=== PATIENT | female | born 1945 | race Caucasian/White ===

== ENCOUNTER → 2021-10-27 11:42 | Outpatient (CLI) | payer MEDICARE, SELFPAY ==
--- NOTE | ~2021-10-27 | MR_ITS ---
EXAMINATION: MR lumbar spine wo con DATE: 10/27/2021 12:28 INDICATION: Low back pain, sciatica . TECHNIQUE: Magnetic resonance imaging (MRI) of the lumbar spine was performed without intravenous con trast. Sequences included sagittal T2-weighted FSE, sagittal T2-weighted FS FSE, sagittal T1-weighted FSE, and axial T2-weighted FSE. COMPARISON: 01/12/2013. FINDINGS: The last fully formed and hydrated disc is designated L5-S1. Paraspinal muscle fatty infilt ration. Osseous overgrowth, cortical thickening, and increase interval fatty replacement in the L3 ve rtebral body. Reactive inferior endplate change at L5. Otherwise the marrow signal is benign and homo genous. Conus terminates at T12-L1. Multilevel disc dehydration. Redundancy of epidural fat. 7 mm ant erolisthesis of L5 on S1 The following disc levels are specifically discussed: T11-T12: Mild diffuse bulge. There is no facet joint osteoarthritis. There is no neural foraminal vicenta nosis. There is no central canal stenosis. T12-L1: Mild diffuse bulge. There is no facet joint osteoarthritis. There is no neural foraminal sten osis. There is no central canal stenosis. L1-L2: The disc does not extend beyond the endplate margin. There is mild facet joint osteoarthritis. There is no neural foraminal stenosis. There is no central canal stenosis. L2-L3: Moderate diffuse bulge. There is moderate facet joint osteoarthritis. There is mild left neura l foraminal stenosis. There is no central canal stenosis. L3-L4: Severe diffuse bulge. There is moderate facet joint osteoarthritis. There is moderate right an d mild left neural foraminal stenosis. There is no central canal stenosis. L4-L5: Severe diffuse bulge. There is moderate facet joint osteoarthritis. There is moderate bilatera l neural foraminal stenosis. There is mild central canal stenosis. L5-S1: Mild diffuse bulge. There is severe facet joint osteoarthritis. There is moderate right and se antonette left neural foraminal stenosis. There is severe central canal stenosis. IMPRESSION: 1. Grade 1 degenerative anterolisthesis of L5 on S1 with severe facet arthropathy contribute to moder ate right and severe left neural foraminal narrowing as well as severe central canal stenosis. 2. Additional multilevel degenerative disc and facet changes and mild-moderate neural foraminal narro wing described above. 3. 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 4. Paraspinal muscle atrophy. Reviewed, dictated and finalized at location K. IMPRESSION: 1. Grade 1 degenerative anterolisthesis of L5 on S1 with severe facet arthropat hy contribute to moderate right and severe left neural foraminal narrowing as w ell as severe central canal stenosis. 2. Additional multilevel degenerative disc and facet changes and mild-moderate neural foraminal narrowing described above. 3. 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 4. Paraspinal muscle atrophy.
== END ==
PROVIDERS: PCP Internal Medicine; Visit Provider Internal Medicine
DX: M47.817 Spondylosis without myelopathy or radiculopathy, lumbosacral region (principal); M48.07 Spinal stenosis, lumbosacral region; M54.30 Sciatica, unspecified side
CPT/HCPCS: 72148

== ENCOUNTER 2022-05-24 14:58 | Emergency (ER) | payer MEDICARE, SELFPAY ==
[2022-05-24 15:29] VITALS: PULSE 94; RESP 18; TEMP 37.2; O2SAT 99
[2022-05-24 15:51] VITALS: PULSE 105; RESP 20; O2SAT 96
--- NOTE | 2022-05-24 16:01 | ED.URI ---
HPI - URI/Sore Throat General Chief Complaint: Upper Respiratory Infection Stated Complaint: Swollen glands, sinus infection Wednesday Time Seen by Provider: 05/24/22 15:48 History of Present Illness HPI Narrative: This is a 76-year-old female with past medical history of hypertension, hyperlipidemia, hypothyroidism, presents emergency department complaining of upper respiratory congestion and swollen lymph nodes. She states her symptoms began approximately 1 week ago with sinus pressure, rated 5/10, without radiation or focal weakness/numbness, change in vision or loss of hearing. She notes the swelling began under the right jaw, appeared in the left jaw and over the left cheek. She notes previous nonproductive cough with associated chest and abdominal soreness and one episode of posttussive emesis. She states her abdominal and chest pain have resolved and not recurred. She has no other complaints today. Related Data Home Medications Medication Instructions Recorded Confirmed aspirin 81 mg tablet,delayed 81 mg PO DAILY 01/16/22 release (Adult Low Dose Aspirin) dicyclomine 10 mg capsule 10 mg PO ONCE PRN 01/16/22 multivitamin (Multiple Vitamins 1 tablet PO DAILY 01/16/22 tablet) omeprazole 20 mg tablet,delayed 20 mg PO DAILY 01/16/22 release Allergies Allergy/AdvReac Type Severity Reaction Status Date / Time latex Allergy Unknown Unknown Verified 01/16/22 08:13 Sulfa (Sulfonamide Allergy Unknown Verified 01/16/22 08:13 Antibiotics) Review of Systems Review of Systems: CONSTITUTIONAL: Subjective fevers and chills denies sweats. EYES: Denies visual changes, redness, or discharge. ENT: Rhinorrhea, congestion, sore throat denies otalgia. CARDIOVASCULAR: Denies chest pain, palpitations, or edema. RESPIRATORY: Nonproductive cough denies or dyspnea. GASTROINTESTINAL: Denies abdominal pain, nausea, vomiting, or diarrhea. GENITOURINARY: Denies dysuria or hematuria. SKIN: Denies rash or itching. MUSCULOSKELETAL: Myalgias denies back pain, joint pain, NEUROLOGIC: Headache denies numbness, dizziness, or weakness. PSYCHIATRIC: Denies anxiety or depression. [facility] Past Medical History Medical History (Updated 05/24/22 @ 17:17 by Lj Del Cid MD) Hyperlipidemia Hypertension Hypothyroidism Social History Social History (Updated 05/24/22 @ 16:04 by Lj Del Cid MD) Smoking status: Never smoker Alcohol intake: never Substance use: never Gender identity (if verbalized by the patient): Female Sexual Orientation (if Verbalized by the Patient): Straight or Heterosexual Exam Narrative: GENERAL: Well-developed, well-nourished, and in no acute distress. HEAD: Normocephalic, atraumatic. EYES: PERRLA and EOMI. ENT: Nares clear, no rhinorrhea or epistaxis. Mucous membranes moist. Oropharynx with mild bilateral tonsillar erythema but no hypertrophy, exudate or other lesions. Bilateral TMs pearly hernandez nonbulging NECK: Supple. Bilateral anterior cervical lymphadenopathy without tenderness; no masses. No carotid bruits or JVD CHEST: Clear to auscultation. No respiratory distress. No wheezes rales or rhonchi HEART: Regular rate and rhythm. No murmur heard. Normal peripheral pulses. ABDOMEN: Soft, nontender, nondistended, normal active bowel sounds. EXTREMITIES: Normal range of motion. No edema. SKIN: Warm, dry, no rash. NEURO: No focal deficits. Alert and oriented x3. PSYCH: Normal mood and affect. Course Course Emergency Course: 17:00 - Patient tested positive for influenza A. She is outside of the window for treatment with Tamiflu. She was not tachycardic during examination. Her exam is not concerning for airway compromise. Will discharge with symptomatic treatment. Discussed return emergency precautions including signs/symptoms of respiratory distress and sepsis. Patient voiced understanding and is comfortable with the plan. All questions answered to her satisfaction. Vital Signs Vital
[2022-05-24] MEDS: ACETAMINOPHEN 500 MG TABLET 1000 MG PO (16:12)
[2022-05-24 16:54] LABS: Influenza A QL RT-PCR Positive (Negative); Influenza B QL RT-PCR Negative (Negative); RSV RNA, RT-PCR Negative (Negative); SARS-CoV-2 RNA PCR Negative
[2022-05-24 17:22] VITALS: PULSE 99; RESP 20; O2SAT 97
== END 2022-05-24 17:23 | disposition home or self-care (01) ==
PROVIDERS: Nurse Practitioner Family; Emergency Provider Preventive Medicine Aerospace Medicine; PCP Physician Assistant Medical
DX: J10.1 Influenza due to other identified influenza virus with other respiratory manifestations (principal); R59.1 Generalized enlarged lymph nodes; Z20.822 Contact with and (suspected) exposure to COVID-19; E78.5 Hyperlipidemia, unspecified; I10 Essential (primary) hypertension; E03.9 Hypothyroidism, unspecified; Z79.82 Long term (current) use of aspirin
CPT/HCPCS: 87637; 99283; A9270

== ENCOUNTER 2022-11-03 16:02 | Emergency (ER) | payer MEDICARE, SELFPAY ==
--- NOTE | 2022-11-03 16:12 | ED.FALL ---
HPI - Fall General Chief Complaint: Skin/Abscess/Foreign Body Stated Complaint: Fall Injury/Left Arm Time Seen by Provider: 11/03/22 16:04 Source: patient Mode of arrival: ambulatory Limitations: no limitations History of Present Illness HPI Narrative: Lara is a 76-year-old female patient presenting to the clinic today with complaints of left arm injury-skin tear after a fall last night around 7:00 p.m.. She reports she tripped on a rug and skidded her left arm on the wall and this caused a skin tear. Has skin tear to the proximal left forearm/elbow. Tetanus is not up-to-date Related Data Home Medications Medication Instructions Recorded Confirmed aspirin 81 mg tablet,delayed 81 mg PO DAILY 01/16/22 11/03/22 release (Adult Low Dose Aspirin) dicyclomine 10 mg capsule 10 mg PO ONCE PRN Cramps 01/16/22 11/03/22 multivitamin (Multiple Vitamins 1 tablet PO DAILY 01/16/22 11/03/22 tablet) omeprazole 20 mg tablet,delayed 20 mg PO DAILY 01/16/22 11/03/22 release Allergies Allergy/AdvReac Type Severity Reaction Status Date / Time latex Allergy Unknown Unknown Verified 11/03/22 16:07 Sulfa (Sulfonamide Allergy Unknown Verified 11/03/22 16:07 Antibiotics) Review of Systems Review of Systems: Pertinent positives per HPI. Patient denies any fever, chills, rash, headache, visual changes, dizziness, cough, runny nose, sore throat, shortness of breath, chest pain, palpitations, nausea, vomiting, diarrhea, constipation, abdominal pain, or any urinary issues. [facility] Past Medical History Medical History Anxiety Hyperlipidemia Hypertension Hypothyroidism Social History Social History Smoking status: Never smoker Second hand tobacco smoke exposure: No Alcohol intake: never Substance use: never Substance use type: does not use Lack of Transportation: No Lack of Food: Never True Current Housing: I Have Housing Concerned About Future Housing: No Difficulty Paying Gas/Electric Bills: No Difficulty Paying for Meds: No Currently Unemployed: No Education: High School Diploma/GED Difficulty w/ Childcare or Family Care: No Living arrangements: with family Occupation/Education: occupation Gender identity (if verbalized by the patient): Female Sexual Orientation (if Verbalized by the Patient): Straight or Heterosexual Comments At the time of my signature, I reviewed and agree with the nursing past medical, surgical, social, and family history. There is no relevant family history pertinent to the patient complaint. Exam Narrative: General: Well-developed, obese in no apparent distress Head: Normocephalic, atraumatic. Cardio: Regular rate and rhythm, s1 and s2 normal, no murmur appreciated. Resp: Clear to auscultation bilaterally, no rhonchi, rales, wheezing or rubs. Integumentary: [place], warm, and dry, 5x3.5cm skin tear to the left proximal forearm/elbow Course Course Emergency Course: Portions of this record may have been created with voice recognition software. Level of Care: Express Care Visit Vital Signs Vital signs: Vital signs reviewed Procedures Laceration Laceration 1: Date: 11/03/22 Time: 16:41 Site: upper extremity Side (If applicable): left Size (cm): 5 Description: other (Skin tear) Depth: simple, single layer Local Anesthetic: none Pre-repair: wound explored and irrigated ====== Skin Level ====== Skin layer closed with: steri strips ====== Subcutaneous Layer ====== ====== Muscle Layer ====== ====== Tendon Layer ====== Dressing: Verbal consent obtained for laceration repair. Risk and benefits explained and patient voiced understanding. Area was cleansed with [place] wash and benzoin and Steri-Strips were used to close wound patient
[2022-11-03 16:16] VITALS: PULSE 102; RESP 18; TEMP 36.4; O2SAT 98
[2022-11-03] MEDS: TETANUS,DIPHTHERIA,AC PERTUSSIS ADULT (0.5 ML) BOOSTRIX IM (16:30)
[2022-11-03 16:31] VITALS: BP 152/81
== END 2022-11-03 16:39 | disposition home or self-care (01) ==
PROVIDERS: Emergency Provider Nurse Practitioner Family; PCP Physician Assistant Medical
DX: S51.012A Laceration without foreign body of left elbow, initial encounter (principal); W18.09XA Striking against other object with subsequent fall, initial encounter; Z23 Encounter for immunization; F41.9 Anxiety disorder, unspecified; E78.5 Hyperlipidemia, unspecified; I10 Essential (primary) hypertension; E03.9 Hypothyroidism, unspecified; Z79.82 Long term (current) use of aspirin
CPT/HCPCS: 90471; 90715; 99212; G0463

== ENCOUNTER 2023-08-27 15:55 | Emergency (ER) | payer MEDICARE, SELFPAY ==
[2023-08-27 16:10] VITALS: BP 160/82; PULSE 91; RESP 18; TEMP 36.3; O2SAT 97
--- NOTE | 2023-08-27 16:28 | ED.BACK ---
HPI - Back Pain/Injury General Chief Complaint: Back Pain/Injury Stated Complaint: Sciatic nerve pain Time Seen by Provider: 08/27/23 16:31 Source: patient and RN notes reviewed Limitations: no limitations History of Present Illness HPI Narrative: 77-year-old female presents with concern of for one-week history of left sciatic pain radiating down left leg. Reports history of sciatic pain that she symptoms cortisone injections and muscle relaxers for, she was not able to get into her doctor for 1 week. She denies loss of bowel or bladder function, perianal anesthesia, weakness in any extremity. She reports tingling in the left leg. She denies fever, abdominal pain, dysuria, frequency, urgency. Denies any new injury. MD elicited complaint: back pain Related Data Home Medications Medication Instructions Recorded Confirmed aspirin 81 mg tablet,delayed 81 mg PO DAILY 01/16/22 08/27/23 release (Adult Low Dose Aspirin) multivitamin (Multiple Vitamins 1 tablet PO DAILY 01/16/22 08/27/23 tablet) omeprazole 20 mg tablet,delayed 20 mg PO DAILY 01/16/22 08/27/23 release Allergies Allergy/AdvReac Type Severity Reaction Status Date / Time latex Allergy Unknown Unknown Verified 08/27/23 16:18 Sulfa (Sulfonamide Allergy Unknown Verified 08/27/23 16:18 Antibiotics) Review of Systems Review of Systems: CONSTITUTIONAL: Denies malaise, chills, sweats, or fever. CARDIOVASCULAR: Denies chest pain, palpitations, or edema. RESPIRATORY: Denies cough or dyspnea. GASTROINTESTINAL: Denies abdominal pain, nausea, vomiting, diarrhea, loss of bowel function GENITOURINARY: Denies dysuria, hematuria, frequency, loss of bladder function. SKIN: Denies rash or itching. MUSCULOSKELETAL: Reports left low back pain radiating down left leg NEUROLOGIC: Denies numbness, weakness, or headache. All systems reviewed & are unremarkable except as noted in HPI and below PMFSH Past Medical History Medical History Anxiety GERD (gastroesophageal reflux disease) Hyperlipidemia Hypertension Hypothyroidism Social History Social History Smoking status: Never smoker Second hand tobacco smoke exposure: No Alcohol intake: never Substance use: never Substance use type: does not use Lack of Transportation: No Lack of Food: Never True Current Housing: I Have Housing Concerned About Future Housing: No Difficulty Paying Gas/Electric Bills: No Difficulty Paying for Meds: No Currently Unemployed: No Education: High School Diploma/GED Difficulty w/ Childcare or Family Care: No Living arrangements: with family Occupation/Education: occupation Gender identity (if verbalized by the patient): Female Sexual Orientation (if Verbalized by the Patient): Straight or Heterosexual Comments At time of signature, agree with nursing past medical, surgical, social and family history. There is no relevant family history pertinent to the presenting complaint Exam Narrative: GENERAL: Well-appearing, well-nourished, and in no acute distress. HEAD: Normocephalic, atraumatic. EYES: PERRLA and EOMI. NECK: Supple. No lymphadenopathy. CHEST: Clear to auscultation. No respiratory distress. HEART: Regular rate and rhythm. Distal pulses palpable and equal, cap refill <3 seconds ABDOMEN: Soft, nontender, nondistended, normal active bowel sounds, no palpable or pulsatile masses. No CVA tenderness MUSCULOSKELETAL: Normal range of motion and strength in all extremities; 5/5 strength with hip flexion and extension, dorsiflexion and extension, knee flexion and extension, plantar flexion and extension. Normal sensation in dermatomal distributions with sensitivity to light touch and pain. No midline back tenderness to palpation. No paraspinal tenderness. Transfers from lying to sitting to standing. SKIN: Warm, dry, no rash. No ecchymosis, eryt
== END 2023-08-27 16:50 | disposition home or self-care (01) ==
PROVIDERS: Emergency Provider Nurse Practitioner; PCP Physician Assistant Medical
DX: M54.42 Lumbago with sciatica, left side (principal); K21.9 Gastro-esophageal reflux disease without esophagitis; E78.5 Hyperlipidemia, unspecified; I10 Essential (primary) hypertension; E03.9 Hypothyroidism, unspecified; F41.9 Anxiety disorder, unspecified; Z79.82 Long term (current) use of aspirin
CPT/HCPCS: 99213; G0463

== ENCOUNTER 2024-04-28 14:14 | Outpatient (CLI) | payer MEDICARE, SELFPAY ==
--- NOTE | ~2024-04-28 | MR_ITS ---
EXAMINATION: MR lumbar spine wo con DATE: 04/28/2024 15:03 INDICATION: Radiculopathy, lumbar region. Low back pain. TECHNIQUE: Magnetic resonance imaging (MRI) of the lumbar spine was performed without intravenous con trast. Sequences included sagittal T2-weighted FSE, sagittal T2-weighted FS FSE, sagittal T1-weighted FSE, and axial T2-weighted FSE. COMPARISON: Lumbar spine MRI 10/27/2021, radiographs 04/07/2024 FINDINGS: There is 3 degrees levocurvature of lumbar spine. There is 7 mm anterolisthesis of L5 on S1 . L3 demonstrates cortical and septal thickening and enlargement, consistent with Paget disease. Ther e is moderately decreased disc height at L3-L4, mildly decreased disc height at L4-L5, and severely d ecreased disc height at L5-S1. The distal spinal cord signal intensity is normal. The conus medullari s is at T12-L1. The following disc levels are specifically discussed: L1-L2: The disc does not extend beyond the endplate margin. There is mild bilateral facet joint osteo arthritis. There is no neural foraminal stenosis. There is no central canal stenosis. L2-L3: The disc is bulging and has an annular fissure. There is moderate bilateral facet joint osteoa rthritis. There is mild bilateral neural foraminal stenosis. There is mild central canal stenosis. L3-L4: The disc is bulging. There is moderate bilateral facet joint osteoarthritis. There is mild edwige ateral neural foraminal stenosis. There is mild central canal stenosis. L4-L5: The disc is bulging. There is severe bilateral facet joint osteoarthritis. There is moderate b ilateral neural foraminal stenosis. There is mild central canal stenosis. L5-S1: The disc is bulging and has an annular fissure. There is severe bilateral facet joint osteoart hritis. There is moderate right and severe left neural foraminal stenosis. There is mild central casie l stenosis. IMPRESSION: 1. Severe lumbar spondylosis. 2. Paget disease of L3. Reviewed, dictated and finalized at location A. [employer]
--- NOTE | ~2024-04-28 | MR_ITS ---
EXAMINATION: MR wrist LT wo con DATE: 04/28/2024 15:37 INDICATION: Left wrist pain TECHNIQUE: Magnetic resonance imaging (MRI) of the left wrist was performed without intravenous contr ast. Sequences performed include axial PD-weighted FSE and PD-weighted FS FSE, coronal PD-weighted FS FSE and T1-weighted SE, and sagittal PD-weighted FS FSE and PD-weighted FSE. COMPARISON: Left wrist radiographs dated 04/07/2024 FINDINGS: Intrinsic ligaments: The scapholunate and lunotriquetral ligaments are normal. Triangular fibrocartilage complex (TFCC): The triangular fibrocartilage including its foveal and styloid attachments as well as the dorsal and volar radioulnar ligaments are normal. The ulnar collateral ligament, ulnotriquetral ligament and men iscal homologue are normal. The extensor carpi ulnaris tendon sheath is normal. Extensor wrist: There is increased fluid signal in the first dorsal compartment consistent with mild tenosynovitis (d e Quervain's tenosynovitis). Moderate tendinopathy and longitudinal split tearing of the abductor raul licis longus and possibly also of the extensor pollicis brevis tendon which is difficult to clearly d istinguish from the neighboring abductor pollicis longus tendon. The remaining extensor tendons of th e wrist are normal. Flexor wrist: The flexor tendons of the wrist are normal. No abnormality in the carpal tunnel with normal median n erve. Guyon's canal: Guyon's canal including the ulnar nerve and artery are normal. Bones/other: Normal marrow signal. No fracture, erosions, avascular necrosis or abnormal marrow replacing process. Mild osteoarthritis at the distal radioulnar and first carpal metacarpal joints. IMPRESSION: 1. 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 Reviewed, dictated and finalized at location B. [employer]ICAL EQUIPMENT TESTER IMPRESSION: 1. de Quervain's tenosynovitis in the first dorsal compartment with moderate te ndinopathy and longitudinal split tearing of the abductor pollicis longus and/o r extensor pollicis brevis tendon.
== END 2024-04-28 14:15 | disposition home or self-care (01) ==
LOC: MICIMG 14:17
PROVIDERS: PCP Physician Assistant Medical; Visit Provider Physician Assistant Medical
DX: M25.532 Pain in left wrist (principal); M88.1 Osteitis deformans of vertebrae; M47.26 Other spondylosis with radiculopathy, lumbar region
CPT/HCPCS: 72148; 73221

== ENCOUNTER 2025-02-01 12:30 | Outpatient (CLI) | payer MEDICARE, SELFPAY ==
--- NOTE | ~2025-02-01 | MR_ITS ---
MRI of the left knee Clinical history: Pain Technique: Coronal proton density and proton density-weighted images, sagittal proton-density and T2 fat-sat images, and axial proton-density fat-saturated images were acquired. Findings: Anterior and posterior cruciate ligaments are intact. Medial collateral ligament and the lateral collateral ligament complex are intact. Popliteus tendon is intact. There is extensive intrasubstance degenerative signal of the posterior horn of the medial meniscus without definite tear. No lateral meniscal tear evident. There is diffuse severe chondromalacia patella with irregularity of the articular surface at the apex and lateral facet. There is severe chondromalacia diffusely involving the femoral trochlea, again with mild irregularity along the lateral femoral trochlea in particular. There is advanced chondromalacia at the medial and lateral joint lines focally, with moderate to large osteophyte at the medial lateral joint lines. Extensor mechanism is intact. Moderate joint effusion present. Small Escalante's cyst probably present. Impression: Severe degenerative change of the patellofemoral compartment, with probable chronic remodeling and irregularity of the articular surfaces. Correlate for any surgical history at the patellofemoral region. Moderate degenerative change at the medial lateral joint lines, as above. No definite ligamentous injury or meniscal tear seen. Moderate joint effusion with small Escalante's cyst. Reviewed, dictated and finalized at location M. Impression: Severe degenerative change of the patellofemoral compartment, with probable chr onic remodeling and irregularity of the articular surfaces. Correlate for any s urgical history at the patellofemoral region. Moderate degenerative change at the medial lateral joint lines, as above. No definite ligamentous injury or meniscal tear seen. Moderate joint effusion with small Escalante's cyst.
== END 2025-02-01 12:31 | disposition home or self-care (01) ==
PROVIDERS: PCP Physician Assistant Medical; Visit Provider Orthopaedic Surgery
DX: M71.22 Synovial cyst of popliteal space [Baker], left knee (principal); M17.12 Unilateral primary osteoarthritis, left knee
CPT/HCPCS: 73721

== ENCOUNTER 2025-03-10 18:52 | Emergency (ER) | payer MEDICARE, SELFPAY ==
--- NOTE | 2025-03-10 18:52 | ED_ITS ---
HPI - Extremity Injury (Upper) General Chief Complaint: Wound/Laceration Stated Complaint: R arm pain Time Seen by Provider: 03/10/25 18:52 Source: patient Mode of arrival: ambulatory Limitations: no limitations History of Present Illness HPI narrative: Lara is a 79 year old female patient presenting to the clinic today with c/o right arm skin tear. She reports some a broom handle fell and hit her in the arm causing a skin tear to her right forearm. Tetanus unk. This occured today. Related Data Home Medications ?Medication ?Instructions ?Recorded ?Confirmed ?Last Taken ?Type aspirin 81 mg tablet,delayed 81 mg PO DAILY 01/16/22 0 01/02/25 Unknown History release (Adult Low Dose Aspirin) multivitamin (Multiple Vitamins 1 tablet PO DAILY 11/0201/02/25 Unknown History tablet) omeprazole 20 mg tablet,delayed 20 mg PO DAILY 2 01/02/25 Unknown History release Allergies Allergy/AdvReac Type Severity Reaction Status Date / Time latex Allergy Unknown Unknown Verified 01/02/25 14:24 Sulfa (Sulfonamide Allergy Unknown Verified 01/02/25 14:24 Antibiotics) Review of Systems Review of Systems: Pertinent positives per HPI. Patient denies any fever, chills, rash, headache, visual changes, dizziness, cough, runny nose, sore throat, shortness of breath, chest pain, palpitations, nausea, vomiting, diarrhea, constipation, abdominal pain, or any urinary issues. [facility] Past Medical History Medical History GERD (gastroesophageal reflux disease) Anxiety Hypothyroidism Hyperlipidemia Hypertension Surgical History Surgical History No pertinent past surgical history Social History Social History Smoking status: Never smoker Second hand tobacco smoke exposure: No Alcohol intake: never Substance use: never Substance use type: does not use Lack of Transportation: No Lack of Food: Never True Current Housing: I Have Housing Concerned About Future Housing: No Difficulty Paying Gas/Electric Bills: No Difficulty Paying for Meds: No Currently Unemployed: No Education: High School Diploma/GED Difficulty w/ Childcare or Family Care: No Living arrangements: with family Occupation/Education: occupation Gender identity (if verbalized by the patient): Female Sexual Orientation (if Verbalized by the Patient): Straight or Heterosexual Comments At the time of my signature, I reviewed and agree with the nursing past medical, surgical, social, and family history. There is no relevant family history pertinent to the patient complaint. Exam Narrative: General: Well-developed, well nourished, in no apparent distress Head: Normocephalic, atraumatic. Cardio: Regular rate and rhythm, s1 and s2 normal, no murmur appreciated. Resp: Clear to auscultation bilaterally, no rhonchi, rales, wheezing or rubs. Integumentary: [place], warm, and dry, 3 x 2 cm skin tear to the right forearm Course Course Emergency Course: Portions of this record may have been created with voice recognition software. Level of Care: Express Care Visit Vital Signs Vital signs: Vital signs reviewed MDM - Extremity Injury (Upper) MDM Narrative Medical decision making narrative: At the time of visit patient is resting comfortably on the exam table. Patient appears to be nontoxic. c/o right arm skin tear. She reports some a broom handle fell and hit her in the arm causing a skin tear to her right forearm. Tetanus unk. This occured today. On exam patient has a 3 x 2 cm skin tear to the right forearm. Procedure: Skin laceration repair was performed in the clinic today. Wounds was cleansed with antiseptic wound wash in sterile saline and skin flap was applied back down bringing the wound edges well approximate with Steri strips. Patient tolerated well Plan: Supportive measures were discussed with the patient and they voiced understanding discharge instructions and agrees to treatment plan. Return precautions reviewed Discharge Plan Discharge Clinical Impression: Skin tear Patient Disposition: Home Condition: Stable Instructions: Antibiotic Form, Skin Tear (ED) Additional Instructions: Tdap given in the clinic today Leave bandage on for 24 hours then may remove and apply band aide covering as needed. Keep wound clean and dry Allow the Steri-Strips to fall off on their own-may trim them up if they start to peel up with pair of scissors Watch for signs and symptoms of infection- redness, streaking, swelling, purulent discharge, or increase in pain. Follow up with your PCP in 3 days for wound check Patient Language: [place] Prescriptions: No Action meloxicam 15 mg tablet 15 mg PO DAILY Qty: 90 0RF omeprazole 20 mg tablet,delayed release (DR/EC) 20 mg PO DAILY aspirin [Adult Low Dose Aspirin] 81 mg tablet,delayed release (DR/EC) 81 mg PO DAILY multivitamin [Multiple Vitamins] Tablet 1 tablet PO DAILY cyclobenzaprine 5 mg tablet 5 mg PO TID PRN (Reason: muscle spasm) Qty: 30 0RF tramadol 50 mg tablet 50 mg PO Q6H PRN (Reason: pain) Qty: 30 0RF citalopram 20 mg tablet 20 mg PO DAILY Qty: 90 0RF lisinopril 10 mg tablet 10 mg PO DAILY Qty: 90 1RF simvastatin 20 mg tablet 20 mg PO DAILY Qty: 90 1RF levothyroxine [Synthroid] 125 mcg tablet 125 mcg PO DAILY Qty: 90 0RF Rx Instructions: dose increase 01/17/25 Follow-up/Referrals: Pili Paz PA-C [Primary Care Provider, [facility]] Time of Disposition: 19:27 Quality NIHSS Nursing Documentation ED NIHSS nursing documentation: reviewed/agree
[2025-03-10 19:02] VITALS: BP 137/88; PULSE 100; RESP 18; TEMP 36.2; O2SAT 98
[2025-03-10] MEDS: TETANUS,DIPHTHERIA,AC PERTUSSIS ADULT (0.5 ML) BOOSTRIX IM (19:32)
== END 2025-03-10 19:39 | disposition home or self-care (01) ==
PROVIDERS: Emergency Provider Nurse Practitioner Family; PCP Physician Assistant Medical
DX: S51.811A Laceration without foreign body of right forearm, initial encounter (principal); W20.8XXA Other cause of strike by thrown, projected or falling object, initial encounter; Z23 Encounter for immunization; I10 Essential (primary) hypertension; E78.5 Hyperlipidemia, unspecified; E03.9 Hypothyroidism, unspecified; K21.9 Gastro-esophageal reflux disease without esophagitis; F41.9 Anxiety disorder, unspecified; Z79.82 Long term (current) use of aspirin
CPT/HCPCS: 90471; 90715; 99212; G0463